=== PATIENT | female | born 1975 | race Caucasian/White ===

== ENCOUNTER → 2017-12-14 09:11 | Outpatient (CLI) | payer OTHER, SELFPAY ==
[2017-12-14 11:02] LABS: AST(SGOT) 14 U/L (15-37); Alanine Aminotransfer ALT/SGPT 21 U/L (13-56); Albumin, Serum 3.3 g/dL (3.2-5.0); Alkaline Phosphatase 73 U/L (45-117); Bilirubin, Direct 0.05 mg/dL (0.00-0.30); Globulin 4.1 g/dL (2.2-4.2); Protein, Total 7.4 g/dL (6.4-8.2)
== END ==
LOC: LAB 09:13 → MTLAB 09:15
PROVIDERS: Visit Provider Physician Assistant Surgical
DX: B35.1 Tinea unguium (principal)
CPT/HCPCS: 36415; 80076

== ENCOUNTER → 2018-02-24 11:09 | Outpatient (CLI) | payer OTHER, SELFPAY ==
[2018-02-24 12:23] LABS: Absolute Lymphocyte Count 2.59 X10^3/ul (0.83-4.51); Absolute Neutrophil Count 4.8 X10^3/uL (2.0-7.7); Basophil# 0.03 X10^3/uL; Basophil% 0.4 % (0-1); Eosinophil# 0.07 X10^3/uL; Eosinophils% 0.8 % (0-5); Hematocrit 39.2 % (37-47); Hemoglobin 12.6 g/dl (12.0-15.0); Lymphocyte # 2.59 X10^3/ul (4.0); Lymphocyte % 31.3 % (19-41); Mean Corp Hgb Conc 32.1 g/gl (32-36); Mean Corpuscular Hgb 31.4 pg (27.0-32.0); Mean Corpuscular Volume 97.8 fL (81-99); Monocyte% 9.7 % (0-10); Neutrophil # 4.78 X10^3/uL (2.7-7.7); Neutrophil % 57.7 % (47-70); Platelet Count 228 K/mm3 (150-450); RBC Distribution Width CV 12.9 % (11.6-14.6); RBC Distribution Width SD 45.4 fl (35.1-43.9); Red Blood Count 4.01 M/mm3 (4.2-5.4); White Blood Count 8.3 K/mm3 (4.4-11.0)
[2018-02-24 12:28] LABS: POSITIVE COUNT NO; POSITIVE DIFFERENTIAL NO; POSITIVE MORPHOLOGY NO
[2018-02-24 12:40] LABS: ALB/GLOB Ratio 0.9 RATIO (0.9-2.4); AST(SGOT) 14 U/L (15-37); Alanine Aminotransfer ALT/SGPT 20 U/L (13-56); Albumin, Serum 3.4 g/dL (3.2-5.0); Alkaline Phosphatase 69 U/L (45-117); Anion Gap 9 (5-15); BUN 18 mg/dL (7-18); BUN/Creat Ratio 22.3 RATIO (10-20); Calcium,Total 8.5 mg/dL (8.5-10.1); Chloride 108 mmol/L (98-107); Creatinine, Serum 0.81 mg/dL (0.55-1.02); EST Glomerular Filtration Rate 82 mL/min (>60); Est Glom Filt Rate - Afr Amer 99 mL/min (>60); Globulin 3.7 g/dL (2.2-4.2); Glucose 89 mg/dL (74-106); Protein, Total 7.1 g/dL (6.4-8.2); Sodium Level 140 mmol/L (136-145)
== END ==
PROVIDERS: Family Provider Internal Medicine; PCP Internal Medicine; Visit Provider Internal Medicine
DX: B35.1 Tinea unguium (principal)
CPT/HCPCS: 36415; 80053; 85025

== ENCOUNTER → 2018-03-28 10:27 | Outpatient (CLI) | payer OTHER, SELFPAY ==
--- NOTE | 2018-03-28 10:32 | EKG12_ITS ---
Test Reason : PALPITATIONS Blood Pressure : / mmHG Vent. Rate : 078 BPM Atrial Rate : 078 BPM P-R Int : 144 ms QRS Dur : 076 ms QT Int : 342 ms P-R-T Axes : 032 024 038 degrees QTc Int : 389 ms Normal sinus rhythm Normal ECG Confirmed by ALMITA ANDERS MD ([id number]), non linear editor CINDY DENIS ([id number]) on 03/31/2018 1:05:03 PM Referred By: Farhana Fernandez Confirmed By:ALMITA ANDERS MD
== END ==
PROVIDERS: Family Provider Internal Medicine; PCP Internal Medicine; Visit Provider Internal Medicine
DX: R00.2 Palpitations (principal); I49.9 Cardiac arrhythmia, unspecified
CPT/HCPCS: 93005

== ENCOUNTER → 2018-04-03 13:55 | Outpatient (CLI) | payer OTHER, SELFPAY | PROVIDERS: Family Provider Internal Medicine; PCP Internal Medicine; Visit Provider Internal Medicine | DX: I49.9 Cardiac arrhythmia, unspecified (principal) | CPT/HCPCS: 93225; 93226 ==

== ENCOUNTER → 2018-06-12 09:15 | Outpatient (CLI) | payer OTHER, SELFPAY ==
--- NOTE | 2018-06-12 09:17 | RAD_ITS ---
STUDY: X-RAY - LEFT FOOT CLINICAL: Female, 43 years old. Pain in the plantar aspect of the medial arch of the foot. Pain shoots into ankle. TECHNIQUE: 3 view(s) of the foot. COMPARISON: None. FINDINGS: There is a plantar calcaneal spur and there is a posterior calcaneal enthesophyte at the insertion site of the Achilles' tendon. Otherwise normal talus, calcaneus, and tarsal bones. Normal visualized subtalar, talonavicular, calcaneocuboid, tarsal and tarsometatarsal articulations. Normal metatarsi. Normal metatarsophalangeal joint of the great toe. Normal tibial and fibular sesamoid bones. Normal interphalangeal joint of the great toe. Normal phalanges of the great toe. Normal second through fifth metatarsophalangeal joints. Normal interphalangeal joints and phalanges of the lesser toes. There is a small accessory ossicle seen overlying the tarsal-metatarsal articulations on lateral view. RAD/Foot min 3 Views IMPRESSION: Mild degenerative changes, as above. No demonstrated fracture, dislocation, or destructive osseous lesion. Electronically Signed: Harinder Schneider MD at 3:09 EDT , Service support ,
[2018-06-12 12:13] LABS: Absolute Lymphocyte Count 1.78 X10^3/ul (0.83-4.51); Absolute Neutrophil Count 3.7 X10^3/uL (2.0-7.7); Basophil# 0.03 X10^3/uL; Basophil% 0.5 % (0-1); Eosinophil# 0.09 X10^3/uL; Eosinophils% 1.5 % (0-5); Hematocrit 39.4 % (37-47); Hemoglobin 12.3 g/dl (12.0-15.0); Lymphocyte # 1.78 X10^3/ul (4.0); Lymphocyte % 29.2 % (19-41); Mean Corp Hgb Conc 31.2 g/gl (32-36); Mean Corpuscular Volume 99.2 fL (81-99); Mean Platelet Vol. 10.4 fl (6.2-12.0); Monocyte# 0.54 X10^3/uL; Monocyte% 8.9 % (0-10); Neutrophil # 3.65 X10^3/uL (2.7-7.7); Neutrophil % 59.9 % (47-70); Platelet Count 205 K/mm3 (150-450); RBC Distribution Width CV 12.8 % (11.6-14.6); RBC Distribution Width SD 46.3 fl (35.1-43.9); Red Blood Count 3.97 M/mm3 (4.2-5.4); White Blood Count 6.1 K/mm3 (4.4-11.0)
[2018-06-12 12:22] LABS: AST(SGOT) 16 U/L (15-37); Alanine Aminotransfer ALT/SGPT 34 U/L (13-56); Albumin, Serum 3.7 g/dL (3.2-5.0); Alkaline Phosphatase 85 U/L (45-117); Anion Gap 11 (5-15); BUN 21 mg/dL (7-18); BUN/Creat Ratio 21.4 RATIO (10-20); Calcium,Total 8.9 mg/dL (8.5-10.1); Chloride 107 mmol/L (98-107); Creatinine, Serum 0.98 mg/dL (0.55-1.02); EST Glomerular Filtration Rate 65 mL/min (>60); Est Glom Filt Rate - Afr Amer 79 mL/min (>60); Globulin 3.6 g/dL (2.2-4.2); Glucose 96 mg/dL (74-106); POSITIVE COUNT NO; POSITIVE DIFFERENTIAL NO; POSITIVE MORPHOLOGY NO; Potassium 3.7 mmol/L (3.5-5.1); Protein, Total 7.3 g/dL (6.4-8.2); Sodium Level 143 mmol/L (136-145)
== END ==
PROVIDERS: Family Provider Internal Medicine; PCP Internal Medicine; Referring Provider Internal Medicine; Visit Provider Internal Medicine
DX: M79.672 Pain in left foot (principal); Z51.81 Encounter for therapeutic drug level monitoring
CPT/HCPCS: 73630; 80053; 85025

== ENCOUNTER → 2019-01-23 08:00 | Outpatient (CLI) | payer OTHER, SELFPAY ==
[2018-11-21 14:28] VITALS: BMI 29.2
--- NOTE | 2019-01-23 08:05 | BI_ITS ---
MAMMOGRAPHY - BILATERAL SCREENING REASON FOR EXAM: Female, 43 years old. Routine annual screening examination. PERTINENT HISTORY: Grandmother with breast cancer. Occasional left lateral breast tenderness. TECHNIQUE: Digital bilateral breast ankit (3D mammographic acquisition) in the CC and MLO projections. 2-D mediolateral oblique (MLO) and craniocaudad (CC) views of both breasts were obtained. CAD: Full Field Digital Mammography with Computer Added Detection was performed. COMPARISON: Comparison is made with prior examination dated May 18, 2016 and June 04, 2015. FINDINGS: Breast Composition: There are scattered areas of fibroglandular density. There are no dominant masses or suspicious calcifications. No other significant abnormalities are identified. There has been no significant change since the prior study. BI/SCREENING MAMM (CAD), BILAT IMPRESSION: Stable bilateral screening mammogram. Yearly follow-up mammogram recommended. (A) ASSESSMENT CATEGORY: BIRADS Category 1: Negative. A letter regarding these results will be sent to the patient by the facility within 30 days. Approximately 10% of breast cancers are not detected by mammography. A normal mammogram should not delay biopsy of a clinically suspicious abnormality. [id number] Electronically Signed: Leonid Duenas, at 8:59 EDT , Service support ,
== END ==
PROVIDERS: Family Provider Internal Medicine; PCP Internal Medicine; Referring Provider Obstetrics & Gynecology; Visit Provider Obstetrics & Gynecology
DX: Z12.31 Encounter for screening mammogram for malignant neoplasm of breast (principal); Z80.3 Family history of malignant neoplasm of breast
CPT/HCPCS: 77063; 77067

== ENCOUNTER → 2019-08-27 13:43 | Outpatient (CLI) | payer OTHER, SELFPAY ==
[2019-08-27 15:03] VITALS: BMI 29.2
== END ==
PROVIDERS: Family Provider Internal Medicine; PCP Internal Medicine; Referring Provider Physician Assistant; Visit Provider Physician Assistant
DX: J02.9 Acute pharyngitis, unspecified (principal)
CPT/HCPCS: 87070

== ENCOUNTER → 2020-06-12 12:22 | Outpatient (CLI) | payer BC, SELFPAY ==
[2020-06-12 08:27] VITALS: BMI 29.2
[2020-06-17 17:14] LABS: HPV APTIMA, High Risk Negative (Negative)
== END ==
PROVIDERS: PCP Internal Medicine; Referring Provider Obstetrics & Gynecology; Visit Provider Obstetrics & Gynecology
DX: Z12.4 Encounter for screening for malignant neoplasm of cervix (principal); R82.90 Unspecified abnormal findings in urine
CPT/HCPCS: 87086; 87088; 87624; 88175; G0145

== ENCOUNTER → 2020-06-28 07:06 | Outpatient (CLI) ==
[2020-06-28 08:26] LABS: Absolute Lymphocyte Count 2.56 X10^3/uL (0.83-4.51); Absolute Neutrophil Count 3.2 X10^3/uL (2.0-7.7); Basophil# 0.03 X10^3/uL; Basophil% 0.5 % (0-1); Eosinophil# 0.07 X10^3/uL; Eosinophils% 1.1 % (0-5); Hematocrit 43.2 % (37-47); Hemoglobin 13.5 g/dL (12.0-15.0); Lymphocyte # 2.56 X10^3/ul (4.0); Lymphocyte % 39.1 % (19-41); Mean Corp Hgb Conc 31.3 g/dL (32-36); Mean Corpuscular Volume 102.4 fL (81-99); Mean Platelet Vol. 10.5 fl (6.2-12.0); Monocyte# 0.64 X10^3/uL; Monocyte% 9.8 % (0-10); NRBC Flagged by Analyzer 0 % (0-5); Neutrophil # 3.23 X10^3/uL (2.7-7.7); Neutrophil % 49.3 % (47-70); Platelet Count 238 K/mm3 (150-450); RBC Distribution Width CV 11.9 % (11.6-14.6); RBC Distribution Width SD 44.6 fl (35.1-43.9); Red Blood Count 4.22 M/mm3 (4.2-5.4); White Blood Count 6.5 K/mm3 (4.4-11.0)
[2020-06-28 08:58] LABS: ALB/GLOB Ratio 0.9 RATIO (0.9-2.4); AST(SGOT) 15 U/L (15-37); Alanine Aminotransfer ALT/SGPT 31 U/L (13-56); Albumin, Serum 3.5 g/dL (3.2-5.0); Alkaline Phosphatase 84 U/L (45-117); Anion Gap 3 (5-15); BUN 17 mg/dL (7-18); BUN/Creat Ratio 15.5 RATIO (10-20); Calcium,Total 8.9 mg/dL (8.5-10.1); Chloride 109 mmol/L (98-107); EST Glomerular Filtration Rate 57 mL/min (>60); Est Glom Filt Rate - Afr Amer 69 mL/min (>60); Glucose 80 mg/dL (74-106); Potassium 4.1 mmol/L (3.5-5.1); Protein, Total 7.5 g/dL (6.4-8.2); Sodium Level 139 mmol/L (136-145); Thyroid Stim Hormone (TSH) 1.45 uIU/mL (0.358-3.74)
[2020-07-01 18:25] LABS: Vitamin D 1,25-Dihydroxy 42.2 pg/mL (19.9-79.3)
== END ==
PROVIDERS: Obstetrics & Gynecology
DX: Z01.419 Encounter for gynecological examination (general) (routine) without abnormal findings (principal)
CPT/HCPCS: 36415; 80053; 82652; 84443; 85025

== ENCOUNTER → 2020-06-28 07:20 | Outpatient (CLI) | payer BC, SELFPAY ==
[2020-06-12 08:27] VITALS: BMI 29.2
--- NOTE | 2020-06-28 07:20 | BI_ITS ---
MAMMOGRAPHY - BILATERAL SCREENING REASON FOR EXAM: Female, 45 years old. Routine annual screening examination. PERTINENT HISTORY: Grandmother with breast cancer. TECHNIQUE: Digital bilateral breast purvi (3D mammographic acquisition) in the CC and MLO projections. 2-D mediolateral oblique (MLO) and craniocaudad (CC) views of both breasts were obtained. CAD: Full Field Digital Mammography with Computer Added Detection was performed. COMPARISON: Comparison is made with prior examination dated 01/23/2019 and 05/18/2016. FINDINGS: Breast Composition: There are scattered areas of fibroglandular density. There are no dominant masses or suspicious calcifications. No other significant abnormalities are identified. There has been no significant change since the prior study. BI/SCREEN MAMM (CAD) W/PURVI BILAT IMPRESSION: Stable bilateral screening mammogram. Yearly follow-up mammogram recommended. (A) ASSESSMENT CATEGORY: BIRADS Category 1: Negative. A letter regarding these results will be sent to the patient by the facility within 30 days. Approximately 10% of breast cancers are not detected by mammography. A normal mammogram should not delay biopsy of a clinically suspicious abnormality. [id number] Electronically Signed: Leonid Duenas, at 8:55 EDT , Service support ,
== END ==
LOC: OPBI 12-31 00:28
PROVIDERS: PCP Internal Medicine; Referring Provider Obstetrics & Gynecology; Visit Provider Obstetrics & Gynecology
DX: Z12.31 Encounter for screening mammogram for malignant neoplasm of breast (principal)
CPT/HCPCS: 77063; 77067

== ENCOUNTER → 2020-09-26 13:38 | Outpatient (CLI) | payer BC, SELFPAY ==
[2020-09-26 15:12] LABS: Anion Gap 5 (5-15); BUN 23 mg/dL (7-18); BUN/Creat Ratio 24.7 RATIO (10-20); Calcium,Total 8.8 mg/dL (8.5-10.1); Chloride 106 mmol/L (98-107); Creatinine, Serum 0.93 mg/dL (0.55-1.02); EST Glomerular Filtration Rate 69 mL/min (>60); Est Glom Filt Rate - Afr Amer 83 mL/min (>60); Glucose 74 mg/dL (74-106); Potassium 4.2 mmol/L (3.5-5.1); Sodium Level 138 mmol/L (136-145)
== END ==
PROVIDERS: PCP Internal Medicine; Referring Provider Internal Medicine; Visit Provider Internal Medicine
DX: N17.9 Acute kidney failure, unspecified (principal)
CPT/HCPCS: 36415; 80048

== ENCOUNTER → 2021-05-08 | Outpatient (CLI) | payer BC, SELFPAY | END | disposition home or self-care (01) | PROVIDERS: PCP Internal Medicine; Visit Provider Family Medicine | DX: Z20.828 Contact with and (suspected) exposure to other viral communicable diseases (principal) | CPT/HCPCS: 87635; U0005; U0003 ==

== ENCOUNTER → 2021-05-26 | Outpatient (CLI) | payer BC, SELFPAY ==
[2021-05-28 03:06] LABS: Chlamydia By Nucleic Acid AMP Negative (Negative)
[2021-05-28 20:57] LABS: Gonococcus By Nucleic Acid AMP Negative (Negative)
== END | disposition home or self-care (01) ==
LOC: LABSPEC 13:21
PROVIDERS: PCP Internal Medicine; Referring Provider Family Medicine; Visit Provider Family Medicine
DX: Z20.9 Contact with and (suspected) exposure to unspecified communicable disease (principal)
CPT/HCPCS: 87491; 87591

== ENCOUNTER → 2021-06-29 12:52 | Outpatient (CLI) | payer BC, SELFPAY ==
[2020-12-30 14:10] VITALS: BMI 27.6
--- NOTE | 2021-06-29 12:54 | BI_ITS ---
MAMMOGRAPHY - BILATERAL SCREENING REASON FOR EXAM: Female, 46 years old. Routine annual screening examination. PERTINENT HISTORY: Grandmother with breast cancer. TECHNIQUE: Digital bilateral breast purvi (3D mammographic acquisition) in the CC and MLO projections. 2-D mediolateral oblique (MLO) and craniocaudad (CC) views of both breasts were obtained. CAD: Full Field Digital Mammography with Computer Added Detection was performed. COMPARISON: Comparison is made with prior study 06/28/2020 and 01/23/2019. FINDINGS: Breast Composition: There are scattered areas of fibroglandular density. There are no dominant masses or suspicious calcifications. No other significant abnormalities are identified. There has been no significant change since the prior study. BI/SCRN MAMM (CAD)W/PURVI BILAT IMPRESSION: Stable bilateral screening mammogram. Yearly follow-up mammogram recommended. (A) ASSESSMENT CATEGORY: BIRADS Category 1: Negative. A letter regarding these results will be sent to the patient by the facility within 30 days. Approximately 10% of breast cancers are not detected by mammography. A normal mammogram should not delay biopsy of a clinically suspicious abnormality. [id number] Electronically Signed: Leonid Duenas MD at 13:49 EDT , Service support ,
== END ==
PROVIDERS: PCP Internal Medicine; Referring Provider Obstetrics & Gynecology; Visit Provider Obstetrics & Gynecology
DX: Z12.31 Encounter for screening mammogram for malignant neoplasm of breast (principal); Z80.3 Family history of malignant neoplasm of breast
CPT/HCPCS: 77063; 77067

== ENCOUNTER → 2021-07-22 | Outpatient (CLI) | payer BC, SELFPAY | END | disposition home or self-care (01) | LOC: LABSPEC 14:44 | PROVIDERS: PCP Family Medicine; Visit Provider Obstetrics & Gynecology | DX: N89.8 Other specified noninflammatory disorders of vagina (principal) | CPT/HCPCS: 87070; 87205 ==

== ENCOUNTER → 2021-08-11 13:24 | Outpatient (CLI) | payer BC, SELFPAY ==
[2021-08-11 15:58] LABS: HIV - WCH Non-Reactive (Nonreactive); Hepatitis B Surface Antigen Non-Reactive (Nonreactive); Syphilis Antibodies Non-reactive
[2021-08-13 13:38] LABS: HSV 1 IgG < 0.91 index (0.00-0.90); HSV 2 IgG < 0.91 index (0.00-0.90)
== END ==
PROVIDERS: PCP Family Medicine; Referring Provider Family Medicine; Visit Provider Family Medicine
DX: Z20.9 Contact with and (suspected) exposure to unspecified communicable disease (principal)
CPT/HCPCS: 36415; 86695; 86696; 86703; 86780; 87340

== ENCOUNTER → 2022-07-19 | Outpatient (CLI) | payer BC, SELFPAY ==
--- NOTE | 2022-07-19 14:43 | BI_ITS ---
MAMMOGRAPHY - BILATERAL SCREENING REASON FOR EXAM: Female, 47 years old. Routine annual screening examination. PERTINENT HISTORY: Grandmother with breast cancer. TECHNIQUE: Digital bilateral breast purvi (3D mammographic acquisition) in the CC and MLO projections. 2-D mediolateral oblique (MLO) and craniocaudad (CC) views of both breasts were obtained. CAD: Full Field Digital Mammography with Computer Added Detection was performed. COMPARISON: Comparison is made with prior study dated 06/29/2021 and 06/28/2020. FINDINGS: Breast Composition: There are scattered areas of fibroglandular density. There are no dominant masses or suspicious calcifications. No other significant abnormalities are identified. There has been no significant change since the prior study. BI/SCRN MAMM (CAD)W/PURVI BILAT IMPRESSION: Stable bilateral screening mammogram. Yearly follow-up mammogram recommended. (A) ASSESSMENT CATEGORY: BIRADS Category 1: Negative. A letter regarding these results will be sent to the patient by the facility within 30 days. Approximately 10% of breast cancers are not detected by mammography. A normal mammogram should not delay biopsy of a clinically suspicious abnormality. [id number] Electronically Signed: Leonid Duenas MD at 8:28 EST ,
== END | disposition home or self-care (01) ==
LOC: OPBI 14:43
PROVIDERS: PCP Family Medicine; Referring Provider Obstetrics & Gynecology; Visit Provider Obstetrics & Gynecology
DX: Z12.31 Encounter for screening mammogram for malignant neoplasm of breast (principal); Z80.3 Family history of malignant neoplasm of breast
CPT/HCPCS: 77063; 77067

== ENCOUNTER → 2023-09-07 | Outpatient (CLI) | payer BC, SELFPAY ==
[2023-09-07 08:39] LABS: Cholesterol 226 mg/dL (200); Follicle Stimulating Hormone 74.7 mIU/mL; Glucose 95 mg/dL (74-106); High Density Lipoprotein 36 mg/dL; Thyroid Stim Hormone (TSH) 1.33 uIU/mL (0.358-3.74); Triglycerides 313 mg/dL; Very Low Density Lipoprotein 63 mg/dL (5-40)
[2023-09-07 09:21] LABS: Vitamin D,25 Hydroxy 32.3 ng/mL
== END | disposition home or self-care (01) ==
LOC: PAVLAB 08:06
PROVIDERS: PCP Family Medicine; Referring Provider Nurse Practitioner Women's Health; Visit Provider Nurse Practitioner Women's Health
DX: N95.1 Menopausal and female climacteric states (principal); Z13.21 Encounter for screening for nutritional disorder; Z13.29 Encounter for screening for other suspected endocrine disorder; Z13.220 Encounter for screening for lipoid disorders
CPT/HCPCS: 36415; 80061; 82306; 82670; 82947; 83001; 84443

== ENCOUNTER → 2023-09-08 | Outpatient (CLI) | payer BC, SELFPAY ==
--- NOTE | 2023-09-08 07:55 | BI_ITS ---
MAMMOGRAPHY - BILATERAL SCREENING 3-D TOMOSYNTHESIS REASON FOR EXAM: Female, 48 years old. Routine annual screening mammogram. PERTINENT HISTORY: Grandmother with breast cancer. TECHNIQUE: 2-D mammograms and 3-D Tomosynthesis of the breast (s) were performed. CAD was performed. COMPARISON: October 19, 2021, June 29, 2021 FINDINGS: The breast composition is almost entirely fat. No dominant masses, suspicious microcalcifications, asymmetries, skin thickening or nipple retraction. BI/SCRN MAMM (CAD)W/PURVI BILAT IMPRESSION: No interval change and no mammographic signs of malignancy. Yearly screening mammogram recommended. ASSESSMENT CATEGORY: BIRADS Category 1: Negative. A letter regarding these results will be sent to the patient by the facility within 30 days. FOLLOW UP RECOMMENDATION: Yearly follow up mammogram recommended. (A) Approximately 10% of breast cancers are not detected by mammography. A normal mammogram should not delay biopsy of a clinically suspicious abnormality. Electronically Signed: Heriberto Grant MD at 11:04 EST ,
--- OUTSIDE RECORDS SUMMARY | 2023-09-08 07:59 | XMS RPT_ITS | CCD ---
Author Name Unknown Address [facility] [address] [place] [address] Organization [facility] Results Test Name Value Interpretation Reference Range Facil ity Progress note 09-10-2021 Note Date & Type Note Facility 09-10-2021 Note HNO ID: [id number] Author: RT Marce(R) Service: Radiology Author Type: Technologist Type: Progress Notes Filed: 09/10/2021 12:41 PM Note Text: Radiology Service Progress Note PATIENT NAME: Eliana Farley DATE OF SERVICE: September 10, 2021 TIME: 12:31 PM PATIENT IDENTITY VERIFICATION COMPLETED USING TWO (2) IDENTIFIERS: Name and Date of confirmed by patient verbally. FALL SCREENING: Has the patient had 2 falls in the last year or 1 fall with injury or currently using an Ambulatory Assistive Device (Walker, Cane, Wheelchair, Crutches, etc.)? No PATIENT GENDER DATA: Female. status: : No status: NO. PATIENT RELEVANT IMPLANT DATA REVIEWED: Yes RADIOLOGY DEPARTMENT: General X-ray: Exam(s) Completed: Chest X-Ray PERIPHERAL IV DATA: Not applicable SIGNED BY: RT Marce(R) September 10, 2021 12:31 PM [facility] Progress note 09-10-2021 Note Date & Type Note Facility 09-10-2021 Note HNO ID: [id number] Author: Dru Bales APRN.BARREL PAINTER Service: ? Author Type: Nurse Practitioner Type: Progress Notes Filed: 09/10/2021 1:32 PM Note Text: Subjective HPI HPI Eliana Farley is a 46 year old female who presents today for CC of cough, congestion, sob, chest tightness this AM/not now. This started 1 week ago. Has tried otc medication for relief. Symptoms are worsened by nothing. Risk factors positive for covid/home test. denies cp, ear pain, st, diarrhea. Denies possibility of being . Nonsmoker. Vaccinated for covid. .Patient presents with: Cough: chest congestion x1 week PAST MEDICAL HISTORY Diagnosis Date - abnormal pap and colp 2004 no treatment/[place] - Calculus of gallbladder without mention of cholecystitis or obstruction - Unspecified asthma(493.90) Asthma Unspecified,childhood asthma PAST SURGICAL HISTORY Procedure Laterality Date - COLPOSCOPY (VAGINOSCOPY) Colposcopy - LAPAROSCOPIC CHOLEYCYSTECTOMY 08-23-12 - REMOVAL OF TONSILS,<12 Y/O Tonsillectomy ALLERGIES Morphine MEDICATIONS albuterol HFA (PROVENTIL HFA, VENTOLIN HFA) 90 mcg/actuation inhaler inhale 2 puffs every 4 hours if needed busPIRone (BUSPAR) 10 mg tablet TAKE 1 TABLET BY MOUTH UP TO 3 TIMES DAILY NEEDED FOR ANXIETY busPIRone (BUSPAR) 5 mg tablet Take 5 mg by mouth twice daily. DULoxetine (CYMBALTA) 60 mg capsule Take 60 mg by mouth once daily. Etonogestrel-Ethinyl Estradiol (NUVARING) 0.12-0.015 mg/24 hr vaginal ring One vaginally for three weeks out one week MULTIVITAMIN ORAL Take by mouth. DULOXETINE HCL (CYMBALTA ORAL) Take by mouth. FAMILY HISTORY Problem Relation Age of Onset - Breast Cancer Maternal Grandmother - Heart Maternal Grandmother - Hypertension Maternal Grandfather - Asthma Mother - Alzheimer's Disease Maternal Grandfather - Osteoporosis Maternal Grandmother Social History Tobacco Use - Smoking status: Former Smoker Years: 14.00 Types: Cigarettes Quit date: 09/12/1993 Years since quittin.0 - Smokeless tobacco: Never Used Substance Use Topics - Alcohol use: Yes Comment: rare - Drug use: No ROS Objective Blood pressure 122/88, pulse 106, temperature 36.5 ?C (97.7 ?F), resp. rate 18, weight 82.9 kg (182 lb 12.8 oz), last menstrual period 11/04/2015, SpO2 99 %. Physical Exam Constitutional: General: She is not in acute distress. Appearance: She is not toxic-appearing or diaphoretic. HENT: Head: Normocephalic and atraumatic. Cardiovascular: Rate and Rhythm: Normal rate and regular rhythm. Heart sounds: Normal heart sounds, S1 normal and S2 normal. Pulmonary: Effort: Pulmonary effort is normal. Breath sounds: Normal breath sounds. Lymphadenopathy: Cervical: No cervical adenopathy. Right cervical: No superficial cervical adenopathy. Left cervical: No superficial cervical adenopathy. Neurological: Mental Status: She is alert and oriented to person, place, and time. Gait: Gait is intact. ASSESSMENT/PLAN: 1. COVID-19 - ICD9: 079.89, ICD10: U07.1 (primary diagnosis) Discussed quarantine, social distancing otc medications discussed Push fluids -If you experience chest pain/shortness of breath go to ER 2. Cough - ICD9: 786.2, ICD10: R05.9 Xray negative Continued home treatments. Urgent f/u for worsening s/s, sob, cp - XR CHEST 2V FRONTAL/LAT IMPRESSION IMPRESSION: ? No acute cardiopulmonary process. ? Dictated by : MARSHA GOOD MD Agrees to plan Dru Bales APRN.[facility] Summary Purpose Family History No Family History Records Found Advance Directives No Advanced Directives Records Found Additional Source Comments INFORMATION SOURCE (unrecogn ized section and content) FOR RECORDS PERTAINING TO PATIENTS WHO ARE OR HAVE BEEN ENROLLED IN A CHEMICAL DEPENDENCY/SUBSTANCEABUSE PROGRAM, SOME INFORMATION MAY BE OMITTED. This clinical summary was aggregated from multiple sources. Caution should be exercised in using it in the provision of clinical care. This summary normalizes information from multiple sources, and as a consequence, information in this document may materially change the coding, format and clinical context of patient data. In addition, data may be omitted in some cases. CLINICAL DECISIONS SHOULD BE BASED ON THE PRIMARY CLINICAL RECORDS. [email or web address] provides no warranty or guarantee of the accuracy or completeness of information in this document.
== END | disposition home or self-care (01) ==
LOC: OPBI 07:54
PROVIDERS: PCP Family Medicine; Referring Provider Family Medicine; Visit Provider Family Medicine
DX: Z12.31 Encounter for screening mammogram for malignant neoplasm of breast (principal)
CPT/HCPCS: 77063; 77067

== ENCOUNTER → 2024-12-06 | Outpatient (CLI) | payer BC, SELFPAY | END | disposition home or self-care (01) | LOC: LABSPEC 15:22 | PROVIDERS: PCP Family Medicine; Referring Provider Nurse Practitioner Women's Health; Visit Provider Nurse Practitioner Women's Health | DX: Z12.4 Encounter for screening for malignant neoplasm of cervix (principal) | CPT/HCPCS: 87624; 88175; G0145 ==

== ENCOUNTER 2024-12-20 07:27 | Day surgery (SDC) | payer BC, SELFPAY ==
[2024-12-20] VITALS (7 sets, daily range): BP systolic 107–121; BP diastolic 84–93; PULSE 83–96; RESP 16; TEMP 36.2–36.7; O2SAT 97–100; BMI 31.2
[2024-12-20 08:07] LABS: Internal QC Validated? YES +Cl - CLEAR BKGD; Pregnancy, Urine Negative Negative
--- NOTE | 2024-12-20 08:13 | PRE.ANES_ITS ---
ASA Classification* ASA Classification ASA Classification: 2 Assessment & Plan Anesthesia* Anesthesia Assessment Anesthesia Assessment: Discussed sedation and/or anesthesia options, risks, benefits, and alternatives with patient/parents/legal guardian/POA. Questions invited. The patient/parents/legal guardian/POA seems to understand and agrees to proceed with anesthesia plan. Reviewed the physical assessment, medical history, allergy history and patient home medications list prior to surgery/procedure/anesthetic and documented any changes. Performed airway and anesthesia risk assessments. Anesthesia Type Anesthesia Type: MAC History Source History Obtained from:: Patient and Chart Anesthesia Focused Assessment* Temperature: 97.2 F Pulse Rate: 96 Blood Pressure: 121/93 Respiratory Rate: 16 Pulse Ox: 97 Oxygen Delivery Method: Room Air Airway Assessment Mouth opens: >3 cm Mallampati Score: III Teeth Condition: Intact Neck Range of motion (ROM): Full ROM Focused Labs Anesthesia Preop lab: CBC WBC 6.5 K/mm3 (4.4-11.0) 06/28/20 07:36 06/28/20 RBC 4.22 M/mm3 (4.2-5.4) 06/28/20 07:36 06/28/20 Hgb 13.5 g/dL (12.0-15.0) 06/28/20 07:36 06/28/20 Hct 43.2 % (37-47) 06/28/20 07:36 06/28/20 Plt Count 238 K/mm3 (150-450) 06/28/20 07:36 06/28/20 CHEMISTRY Potassium 4.2 mmol/L (3.5-5.1) 09/26/20 13:40 09/26/20 Sodium 138 mmol/L (136-145) 09/26/20 13:40 09/26/20 BUN 23 mg/dL (7-18) H 09/26/20 13:40 09/26/20 Creatinine 0.93 mg/dL (0.55-1.02) 09/26/20 13:40 09/26/20 Glucose 95 mg/dL (74-106) 09/07/23 08:06 09/07/23 TSH 1.33 uIU/mL (0.358-3.74) 09/07/23 08:06 COAG Urine Test Negative Negative 12/20/24 07:42 12/20/24 Pre-Assessment Diagnosis/Proposed Procedure Planned Operative Procedure(s): COOLONOSCOPY-OA Anesthesia History 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 When Was Last Pacemaker Check QUESTION #4 FULL TEXT: You/Your Family Experience fever (hyperthermia) with Anesthesia Last Oral Intake Last Oral intake: Last Oral Intake NPO since 04:30 12/20/24 07:45 Meds taken in AM with sips of water? Meds patient instructed to take am of surgery Any additional information?: Yes NPO since: 04:30 (Patient finished prep at 4:30 AM.) PONV PONV - adjunct psychology faculty member: PONV - adjunct psychology faculty member Female Yes 12/17/24 09:49 HX of Motion Sickness No 12/17/24 09:49 HX of N/V After Surgery No 12/17/24 09:49 Non-Smoker Yes 12/17/24 09:49 Duration of Surgery greater No 12/17/24 09:49 than 60 minutes Number of Risk Factors 2 12/17/24 09:49 PONV Score Moderate Risk 12/17/24 09:49 Height & Weight Height & Weight: Anesthesia: Height & Weight Height 5 ft 6 in 12/20/24 07:45 Weight: 87.8 kg 12/20/24 07:45 Body Mass Index (BMI) 31.2 12/20/24 07:45 Respiratory Assessment Respiratory Assessment - adjunct psychology faculty member: Respiratory Tract Infection Hx - adjunct psychology faculty member Hx Respiratory Tract Infection No 12/17/24 09:49 STOP Sleep Apnea STOP Sleep Apnea - adjunct psychology faculty member: STOP Sleep Apnea - adjunct psychology faculty member Hx Hypertension No 12/17/24 09:49 Hx Sleep Apnea No 12/17/24 09:49 CPAP BIPAP Do you snore loudly (louder No 12/17/24 09:49 than talking or can be heard Do you often feel tired/ No 12/17/24 09:49 fatigued/ sleepy during daytime? Has anyone observed you stop No 12/17/24 09:49 breathing during sleep? STOP Results Negative 12/17/24 09:49 QUESTION #5 FULL TEXT : Do you snore loudly (louder than talking or can be heard through closed doors)? Tobacco Use History Tobacco Use History - adjunct psychology faculty member: Tobacco Use History - adjunct psychology faculty member Tobacco Use Smoking Status Former smoker 12/17/24 09:49 Hx Tobacco Use No 12/17/24 09:49 Years Smoking Packs Smoked per Day Smoking Cessation Date was No - quit smoking greater 12/17/24 09:49 within the last 15 years than 15 years ago Hx Smoking Cessation Date Hx Smoking Cessation Counseling Hematologic Medial History Hematologic Hx - adjunct psychology faculty member: Hematologic Medical Hx - contact lens edge buffer Hx of Blood Transfusion No 12/17/24 09:49 Hx of Transfusion in last 3 No 12/17/24 09:49 Months Date of Last Transfusion (if within last 3 months) Ever experience any problems No 12/17/24 09:49 with transfusion(s)? Specify any problems Hx of Preganancy in last 3 No 12/17/24 09:49 Months Nurse Filling Out Transfusion VCHRISTIN 12/17/24 09:49 & Questions: Date: 12/17/24 12/17/24 09:49 Time: 09:50 12/17/24 09:49 Patient unable to answer at this time (ie. confused, unrespo /Reproduction History /Reproductive History - adjunct psychology faculty member: /Reproductive Hx- adjunct psychology faculty member Hx Now No 12/17/24 09:49 Gestational Age (in weeks): EDC: Hx Hx Para Hx Section SAB No 12/17/24 09:49 PFSH Medical History Wears contact lenses Wears glasses Depression Anxiety Alcohol use History of steroid therapy Arthritis Gastric reflux Former smoker Asthma History of edema History of irregular heartbeat History of normal Holter exam Abnormal Pap smear of cervix Degenerative disc disease Anxiety and depression Frequent headaches Seasonal allergies History of pneumonia History of Knee pain Home Medications ?Medication ?Instructions ?Recorded ?Last Taken ?Type duloxetine 60 mg capsule,delayed 60 mg PO DAILY #60 ca ps 01/28/21 Unknown Rx release etonogestrel 0.12 mg-ethinyl See Rx Instructions .Rout e 10/16/24 Unknown Rx estradiol 0.015 mg/24 hr vaginal .COMPLEX #3 ea ring buspirone 10 mg tablet 10 mg PO QDAY 10/17/24 Unkno wn History cetirizine 10 mg tablet (Zyrtec) 10 mg PO QDAY 5 Unknown History multivitamin 1 tab PO QDAY 10/17/24 Unkno wn History glucosamine-chondroitin 250 mg-200 1 tab PO DAILY 04/05 Unknown History mg tablet (Osteo Bi-Flex) meloxicam 15 mg tablet 15 mg PO DAILY 12/17/24 Unkn own History Allergy/AdvReac Type Severity Reaction Status Date / Time morphine Allergy Severe Chest Verified 12/20/24 07:45 tightness prednisone Allergy Severe Itching Verified 12/20/24 07:45 Family History Mother bipolar Asthma Grandmother Heart disease Breast cancer Myocardial infarction, Onset Age: 70 Osteoporosis Grandfather Parkinson disease CVA (cerebral vascular accident) Hypertension Surgical History History of tonsillectomy History of cholecystectomy Social History current occupational status: employed Smoking Status: Former smoker Tobacco: How many years used: 6 how long ago did patient quit smokin alcohol intake: current alcohol intake frequency: holidays/special occasions only details: social substance use type: does not use caffeine: Yes what type of physical activity do you participate in: walking and weight training frequency: daily seatbelt use: always do you feel safe at home: Yes additional social history: - Works at [employer] Review of Systems (Anesthesia) ROS Narrative System reviewed and no additional complaints, except as documented.
--- NOTE | 2024-12-20 08:29 | HP.PCM_ITS ---
HPI - General General Date of Service: 12/20/24 HPI Narrative MABEL MOISE, is a 49 F who presents for screening colonoscopy. She confirms her preappointment questionnaire that she has not experienced any change in her bowel habits-and particularly denies any notice of blood. She also denies any family history of GI illness to include diverticulitis, inflammatory bowel disease, or colon cancer. Lastly she confirms that her prep was completed successfully and that her output is now clear. [facility] Medical History Wears contact lenses Wears glasses Depression Anxiety Alcohol use History of steroid therapy Arthritis Gastric reflux Former smoker Asthma History of edema History of irregular heartbeat History of normal Holter exam Abnormal Pap smear of cervix Degenerative disc disease Anxiety and depression Frequent headaches Seasonal allergies History of pneumonia History of Knee pain Home Medications ?Medication ?Instructions ?Recorded ?Last Taken ?Type duloxetine 60 mg capsule,delayed 60 mg PO DAILY #60 ca ps 01/28/21 Unknown Rx release etonogestrel 0.12 mg-ethinyl See Rx Instructions .Rout e 10/16/24 Unknown Rx estradiol 0.015 mg/24 hr vaginal .COMPLEX #3 ea ring buspirone 10 mg tablet 10 mg PO QDAY 10/17/24 Unkno wn History cetirizine 10 mg tablet (Zyrtec) 10 mg PO QDAY 5 Unknown History multivitamin 1 tab PO QDAY 10/17/24 Unkno wn History glucosamine-chondroitin 250 mg-200 1 tab PO DAILY 04/05 Unknown History mg tablet (Osteo Bi-Flex) meloxicam 15 mg tablet 15 mg PO DAILY 12/17/24 Unkn own History Allergy/AdvReac Type Severity Reaction Status Date / Time morphine Allergy Severe Chest Verified 12/20/24 07:45 tightness prednisone Allergy Severe Itching Verified 12/20/24 07:45 Family History Mother bipolar Asthma Grandmother Heart disease Breast cancer Myocardial infarction, Onset Age: 70 Osteoporosis Grandfather Parkinson disease CVA (cerebral vascular accident) Hypertension Surgical History History of tonsillectomy History of cholecystectomy Social History current occupational status: employed Smoking Status: Former smoker Tobacco: How many years used: 6 how long ago did patient quit smokin alcohol intake: current alcohol intake frequency: holidays/special occasions only details: social substance use type: does not use caffeine: Yes what type of physical activity do you participate in: walking and weight training frequency: daily seatbelt use: always do you feel safe at home: Yes additional social history: - Works at [employer] Past Medical/Surgical History Planned Operation Planned Operative Procedure(s): COOLONOSCOPY-OA Previous Hospitalizations/Surgeries HX Hospitalizations: No Any Problems With Anesthesia: No You/Your Family Experience Fever (Hyperthermia) With Anes: No Cardiovascular Hx of Irregular Heartbeat and/or Afib: No Hx Heart Attack: No Hx Congestive Heart Failure: No Hx Hypertension: No Hx Internal Defibrillator: No Hx Pacemaker: No Respiratory Hx Chronic Obstructive Pulmonary Disease (COPD): No Hx Asthma: No Hx Emphysema: No Hx Sleep Apnea: No Hx Respiratory Tract Infection/Cold (presently): No Do You Snore Loudly (louder than talking or can be heard): No Do You Often Feel Tired/ Fatigued/ Sleepy Dring Daytime?: No Has Anyone Observed You Stop Breathing During Sleep?: No Result (for STOP score): Negative Smoking Status: Former smoker Gastrointestinal Hx Ulcer: No Neurological Hx Seizures: No Hx Multiple Sclerosis: No Hx Parkinson's Disease: No Hx Head/Neck Injury: No Hx Headaches: No Hx Back Injury/Pain: No Does patient have nerve stimulator: No Reproduction : No Psycho/Social Hx Anxiety: Yes Hx Depression: Yes Miscellaneous Recent Exposure to Contagious Disease: No Allergies morphine Allergy (Severe, Verified 12/20/24 07:45) Chest tightness Gets really hot prednisone Allergy (Severe, Verified 12/20/24 07:45) Itching RED FACE-HOT, RED Discharge Is Pt Admitted From a Long-Term, or a Shelter: No After D/C, Where Do you Plan to Go: Return Home Vital Signs Vital Signs Vital Signs: 12/20/24 07:45 12/20/24 07:45 12/20/24 08:17 Temperature 97.2 F L 97.2 F L Temperature Source Temporal Pulse Rate 96 96 Respiratory Rate 16 16 Respiratory Pattern Normal Blood Pressure 121/93 H 121/93 H Blood Pressure Mean 102 Blood Pressure Source Monitor Blood Pressure Position Semi-Fowlers Blood Pressure Location Left Arm Pulse Ox 97 97 Oxygen Delivery Method Room Air Room Air Weight Weight: 193 lb 9.054 oz Body Mass Index (BMI) 31.2 Physical Exam Const alert, oriented x3 and no apparent distress Resp normal respiratory effort GI GI Narrative: Obese, abdominal striae present, nondistended, soft, nontender to palpation x 4 quadrants Assessment & Plan Assessment/Plan (1) Encounter for screening for malignant neoplasm of colon: PLAN: Patient 49-year-old female who presents for open access screening colonoscopy. She confirms the content of her questionnaire and denies any extraneous issues. Abdominal exam is benign. She confirms a completed prep. Will now proceed to endoscopy suite for planned screening colonoscopy. Patient advised that if any polyps are removed is recommended she abstain from any use of aspirin or ibuprofen products to minimize her risk for bleeding. She con firms understanding. Jackson Walters MD General Surgery Endocrine Surgery Pager: [facility] [address] [place] [address], [address] [place] [address] Office: [phone] Surgery Risks - Colonoscopy Risks Include but are not Limited To: Risks include but are not limited to: Bleeding, perforation requiring further surgery, inability to complete colonoscopy requiring barium enema.
--- NOTE | 2024-12-20 08:30 | COLBX_PTH ---
PATIENT: MABEL MOISE LOC: EN U#:[id number] AGE/SX: 49/F ROOM: RE12/20/[address]: Dr. Jackson Walters MD : 1975 BED: DIS: 12/20/2024 SPEC #: [id number] RECD: 12/20/24 13:41 STATUS: IDALIA VALERIE #: [id number] BETTINA: 12/20/24 08:[address]: Jackson Wlaters DEPT: SURGICAL PATHOLOGY RECD BY: Craig Lin ENTERED: 12/20/24 13:41 SP TYPE: COLON BX OTHR DR: Dr. Roxana Hatch MD Tissues: A - Cecum, NOS B - Rectum, NOS Procedures: Surgery Specimen Level IV HEADER OPERATION: Colonoscopy with biopsy PRE-OP DIAGNOSIS: Hemorrhoids, fissure in ano, constipation, blood in stool TISSUE SUBMITTED: A- Cecal submucosal lipoma biopsy, B- Irregular rectal mucosal biopsy MICROSCOPIC DIAGNOSIS A. Colon, cecum, biopsy: * Colonic mucosa with benign lymphoid aggregate B. Rectum, irregular mucosa, biopsy: * Colonic mucosa with dilated crypts and hyperplastic features MICROSCOPIC DESCRIPTION Slides are reviewed. GROSS DESCRIPTION A. Received in formalin in a container labeled with the patient's name, date of , and cecum submucosal lipoma biopsy is a 0.4 x 0.2 x 0.2 cm fragment of pepe-pink soft tissue. Submitted in toto in A1. B. Received in formalin in a container labeled with the patient's name, date of , and irregular rectal mucosal biopsy is a 0.3 x 0.3 x 0.3 cm fragment of pepe-pink soft tissue. Submitted in toto in B1. [facility] 12/21/2024 CPT:53445g8
--- NOTE | 2024-12-20 09:19 | OP.COLON_ITS ---
Patient Name: Eliana Farley Procedure Date: 12/20/2024 8:23 AM Date of : 1975 Age: 49 Procedure: Colonoscopy Indications: Screening for colorectal malignant neoplasm Providers: Jackson Walters MD Referring MD: Roxana Hatch Medicines: See the Anesthesia note for documentation of the administered medications Patient Profile: Last Colonoscopy: none. The patient's first colonoscopy is today. Complications: No immediate complications. Estimated blood loss: Minimal. Procedure: Pre-Anesthesia Assessment: - The heart rate, respiratory rate, oxygen saturations, blood pressure, adequacy of pulmonary ventilation, and response to care were monitored throughout the procedure. After I obtained informed consent, the scope was passed under direct vision. Throughout the procedure, the patient's blood pressure, pulse, and oxygen saturations were monitored continuously. The Colonoscope was introduced through the anus and advanced to the cecum, identified by the appendiceal orifice, ileocecal valve and palpation. The colonoscopy was somewhat difficult due to a tortuous colon. Successful completion of the procedure was aided by using scope torsion. The patient tolerated the procedure well. The quality of the bowel preparation was adequate to identify polyps. Scope In: 8:42:10 AM Scope Withdrawal Time 0 hours 15 minutes 53 seconds Scope Out: 9:12:35 AM Total Procedure Duration Time 0 hours 30 minutes 25 seconds Findings: The perianal and digital rectal examinations were normal. There was a small lipoma, 20 mm in diameter, in the cecum. Biopsies were taken with a cold forceps for histology. Estimated blood loss was minimal. A localized area of mildly nodular mucosa was found in the rectum. Biopsies were taken with a cold forceps for histology. Estimated blood loss was minimal. The exam was otherwise without abnormality on direct and retroflexion views. Impression: - Small lipoma in the cecum. Biopsied. - Nodular mucosa in the rectum. Biopsied. - The examination was otherwise normal on direct and retroflexion views. Recommendation: - Discharge patient to home (via wheelchair). - Resume previous diet today. - No aspirin, ibuprofen, naproxen, or other non-steroidal anti-inflammatory drugs for 2 days after biopsy. - Await pathology results. - Repeat colonoscopy date to be determined after pending pathology results are reviewed for surveillance based on pathology results. - Telephone my office for pathology results in 1 week. Procedure Code(s): --- Professional --- 54529, Colonoscopy, flexible; with biopsy, single or multiple Diagnosis Code(s): --- Professional --- Z12.11, Encounter for screening for malignant neoplasm of colon D17.5, Benign lipomatous neoplasm of intra-abdominal organs K62.89, Other specified diseases of anus and rectum CPT copyright 2021 [employer]. All rights reserved. The codes documented in this report are preliminary and upon master automotive glass technician review may be revised to meet current compliance requirements. Jackson Walters MD 12/20/2024 9:19:29 AM This report has been signed electronically. Number of Addenda: 0 Note Initiated On: 12/20/2024 8:23 AM
--- NOTE | 2024-12-20 09:20 | OP.CCLET_ITS ---
12/20/2024 Roxana Hatch [place] [address] [place] [address] Re : Colonoscopy procedure for Eliana Farley Dear Dr. Hatch This procedure was performed on December. My impressions and recommendations are as follows: Impressions : - Small lipoma in the cecum. Biopsied. - Nodular mucosa in the rectum. Biopsied. - The examination was otherwise normal on direct and retroflexion views. Recommendations : - Discharge patient to home (via wheelchair). - Resume previous diet today. - No aspirin, ibuprofen, naproxen, or other non-steroidal anti-inflammatory drugs for 2 days after biopsy. - Await pathology results. - Repeat colonoscopy date to be determined after pending pathology results are reviewed for surveillance based on pathology results. - Telephone my office for pathology results in 1 week. My findings are described in the full procedure note, which is enclosed. If I can be of further assistance, please feel free to contact me at Doctor phone number(s): , Work: . Sincerely, Jackson Walters MD 12/20/2024 9:19:29 AM This report has been signed electronically.
--- NOTE | 2024-12-20 09:25 | PCM.POST.ANE ---
Anesthesia: Postop Eval I Current Vital Signs Temperature: 97.1 F Pulse Rate: 86 Blood Pressure: 111/84 Respiratory Rate: 16 Pulse Ox: 97 Oxygen Delivery Method: Room Air Assessment Airway patent: Yes Spontaneous unlabored respirations: Yes Mental status: Asleep nausea: No Vomiting: No Anesthesia Complication: No Fluid Hydration Crystalloid volume administer (ml): 90 Total IV fluid infused: 90 Progress Note Anesthesia document: Postop Eval 1 completed: Yes
--- NOTE | 2024-12-20 10:47 | PCM.POSTANE2 ---
Anesthesia Postop Eval I Sum Postop Eval Completion status Anesthesia document: Postop Eval 1 completed: Yes Anesthesia Postop Eval I Summary Anesthesia Postop Eval I Summary: Anesthesia Postop Eval I: Assessment Summary Airway patent Yes 12/20/24 09:27 [email or web address] Spontaneous unlabored Yes 12/20/24 09:27 [email or web address] respirations Mental status Asleep 12/20/24 09:27 [email or web address] nausea No 12/20/24 09:27 [email or web address] Vomiting No 12/20/24 09:27 [email or web address] Anesthesia Postop Eval I: Fluid Summary Crystalloid volume administer 90 12/20/24 09:27 [email or web address] (ml) Colloids volume administered ( ml) Blood Product volume administered (ml) Total IV fluid infused 90 12/20/24 09:27 [email or web address] Anesthesia Postop Eval I: Summary Notes Anesthesia Complication No 12/20/24 09:27 [email or web address] Anesthesia Complication Comment: Post-operative progress note Anesthesia: Postop Eval II Evaluation Mental status: Awake and Calm Pain Level: 0 nausea: No Vomiting: No Complications Anesthesia Complication: No
== END 2024-12-20 10:19 | disposition home or self-care (01) ==
LOC: EN 07:28 → AC 07:29
PROVIDERS: Anesthesiology; PCP Family Medicine; Referring Provider Family Medicine; Visit Provider Surgery
PROC: 0DJD8ZZ Inspection of Lower Intestinal Tract, Via Natural or Artificial Opening Endoscopic (ICD-10-PCS; CPT 45378; principal; 2024-12-20 08:25)
DX: Z12.11 Encounter for screening for malignant neoplasm of colon (principal); D17.5 Benign lipomatous neoplasm of intra-abdominal organs; K62.89 Other specified diseases of anus and rectum; Z87.891 Personal history of nicotine dependence
CPT/HCPCS: 45380; 81025; 88305; A4216; J2405

== ENCOUNTER → 2024-12-27 | Outpatient (CLI) | payer BC, SELFPAY ==
[2024-12-27 13:05] LABS: Absolute Lymphocyte Count 2.51 X10^3/uL (0.83-4.51); Absolute Neutrophil Count 3.1 X10^3/uL (2.0-7.7); Basophil# 0.04 X10^3/uL; Basophil% 0.6 % (0-1); Eosinophil# 0.13 X10^3/uL; Hematocrit 41.1 % (37-47); Hemoglobin 13.5 g/dL (12.0-15.0); Lymphocyte # 2.51 X10^3/ul (0.83-4.51); Mean Corp Hgb Conc 32.8 g/dL (32-36); Mean Corpuscular Volume 94.3 fL (81-99); Mean Platelet Vol. 10.4 fl (6.2-12.0); Monocyte# 0.65 X10^3/uL; Monocyte% 10.1 % (0-10); NRBC Flagged by Analyzer 0 % (0-5); Neutrophil # 3.09 X10^3/uL (2.7-7.7); Neutrophil % 48.1 % (47-70); Platelet Count 256 K/mm3 (150-450); RBC Distribution Width CV 12.5 % (11.6-14.6); RBC Distribution Width SD 43.8 fl (35.1-43.9); Red Blood Count 4.36 M/mm3 (4.2-5.4); White Blood Count 6.4 K/mm3 (4.4-11.0)
[2024-12-27 14:01] LABS: Cholesterol 201 mg/dL (<=200); Glucose 86 mg/dL (70-99); High Density Lipoprotein 41 mg/dL; Low Density Lipoprotein Calc. 134 mg/dL; Triglycerides 130 mg/dL; Very Low Density Lipoprotein 26 mg/dL (5-40); cholesterol:hdl ratio screen 4.86
[2024-12-27 14:03] LABS: Estradiol 5.3 pg/mL; Follicle Stimulating Hormone 37.1 mIU/mL; Thyroid Stim Hormone (TSH) 0.733 uIU/mL (0.300-4.200); Vitamin D,25 Hydroxy 25.1 ng/mL (30-100)
[2024-12-28 04:07] LABS: Thyroid Peroxidase AB 9 IU/mL (0-34)
== END | disposition home or self-care (01) ==
PROVIDERS: PCP Family Medicine; Referring Provider Nurse Practitioner Women's Health; Visit Provider Nurse Practitioner Women's Health
DX: Z13.1 Encounter for screening for diabetes mellitus (principal); Z13.220 Encounter for screening for lipoid disorders; Z13.29 Encounter for screening for other suspected endocrine disorder; N95.1 Menopausal and female climacteric states; R23.2 Flushing
CPT/HCPCS: 36415; 80061; 82306; 82670; 82947; 83001; 84439; 84443; 85025; 86376